=== PATIENT | male | born 1940 | race Hispanic/Latino ===

== ENCOUNTER 2017-08-18 08:39 | Day surgery (SDC) | payer MEDICARE ==
[2017-08-18 09:04] VITALS: BMI 34.3
[2017-08-18] MEDS ORDERED: Propofol 10 mg/ml Inj (20 ML) ONE (09:38)
[2017-08-18] MEDS ORDERED: Lactated Ringer's 1,000 ML IV ONE (09:45)
--- NOTE | 2017-08-18 09:47 | CP.SDSHP ---
Same Day Surgery H & P - History Proposed Procedure: colonosocpy Pre-Op Diagnosis: screen - Previous Medical/Surgical History Cardiac: Hypertension Pulmonary: Emphysema/COPD - Allergies Allergies: Allergies No Known Allergies Allergy (Unverified 02/16/13 09:04) - Physical Exam Vital Signs: Vital Signs 08/18/17 09:21 Temperature 98.2 F Pulse Rate 73 Respiratory 17 Rate Blood Pressure 151/60 H O2 Sat by Pulse 90 L Oximetry Mental Status: Alert & Oriented x3 Neuro: WNL Heart: WNL Lungs: WNL GI: WNL - {Optional Preform as Required} Abdomen: WNL - Impression Impression: screen Pt. Evaluated Today:Candidate for Anesthesia & Procedure: Yes - Date & Time Date: 08/18/17 Time: 09:30 Short Stay Discharge - Short Stay Discharge Admitting Diagnosis/Reason for Visit: ANEMIA Disposition: HOME/ ROUTINE
[2017-08-18 10:27] VITALS: TEMP 97.1
[2017-08-18 11:24] VITALS: RESP 19
[2017-08-18 11:28] VITALS: BP 135/50; PULSE 65; O2SAT 98
== END 2017-08-18 11:19 | disposition home or self-care (01) ==
LOC: C.ENDO 08:39
PROVIDERS: ATTEND Internal Medicine Gastroenterology
DX: Z12.11 Encounter for screening for malignant neoplasm of colon (principal); D12.3 Benign neoplasm of transverse colon; D12.4 Benign neoplasm of descending colon; D64.9 Anemia, unspecified; K57.30 Diverticulosis of large intestine without perforation or abscess without bleeding; K64.1 Second degree hemorrhoids; Z98.0 Intestinal bypass and anastomosis status; J44.9 Chronic obstructive pulmonary disease, unspecified; E11.9 Type 2 diabetes mellitus without complications; E78.5 Hyperlipidemia, unspecified; I10 Essential (primary) hypertension
CPT/HCPCS: 45380; 82948; 88305; J2704; J7120

== ENCOUNTER 2018-04-17 10:30 | Outpatient (CLI) | payer MEDICARE | END 2018-04-17 10:31 | disposition home or self-care (01) | LOC: C.MAMMO 10:30 | DX: N53.9 Unspecified male sexual dysfunction (principal) ==